=== PATIENT | male | born 1960 | race Caucasian/White ===

== ENCOUNTER 2017-12-11 09:47 | Day surgery (SDC) | payer OTHER ==
[~2017-12-11] VITALS: Ht 167.6 cm; Wt 93.0 kg
[~2017-12-11 09:47] MED LIST: ASPI-555 PO; FEXO1TAB8 PO; FISH1CAP49 PO; METO-391 PO; OMEG100014 PO; RAMI5CAP21 PO; SIMV20TA6 PO; SODIUM CHLORIDE 0.9% 1000ML 1,000 ML IV ONE; UBID100C10 PO; [UNRECOGNIZED DRUG - OTHER] PO
[2017-12-11 10:08] VITALS: BP 138/89
[2017-12-11] MEDS ORDERED: FENTANYL CITRATE PF 50 MCG/1 ML 2ML VIAL ONE (11:02)
[2017-12-11] MEDS ORDERED: PROPOFOL 10 MG/ML 20ML VIAL IV ONE (11:02)
[2017-12-11 11:11] VITALS: BP 101/64
== END 2017-12-11 11:55 ==
LOC: DAH 09:47 → ENDO 09:47
PROVIDERS: ATTEND Internal Medicine Gastroenterology
DX: R10.13 Epigastric pain (principal); I10 Essential (primary) hypertension; I25.2 Old myocardial infarction; E78.5 Hyperlipidemia, unspecified; Z95.820 Peripheral vascular angioplasty status with implants and grafts; Z79.82 Long term (current) use of aspirin; Z79.899 Other long term (current) drug therapy
CPT/HCPCS: A4606; J2704; J3010; J7030